=== PATIENT | female | born 1980 | race African-American/Black ===

== ENCOUNTER 2018-07-12 20:59 | Inpatient (IN) | payer OTHER ==
[~2018-07-12] VITALS: Ht 154.9 cm; Wt 60.3 kg
--- NOTE | 2018-07-12 21:52 | PHYS DOC ---
Adult General Chief Complaint Chief Complaint: SYNCOPE HPI HPI Patient is a 38 year old female who presents with to see began vomiting and was taken to [facility] where her blood pressure was 230/100. Patient states she was admitted and they put her on a drip. Patient states that she now takes amlodipine 10 mg, HCTZ, losartan. Patient states she has chronic GI problems such as nausea, vomiting, or lower abdominal pressure that has been going on for the last 2 years. Patient states she is very inconsistent with taking her amlodipine and that she did smoke some marijuana today. Patient states states the first day that she is able to keep liquids in any kind of food down. Patient states she's drinking Pedialyte and 7-Up today. Patient denies any kind of fever or abdominal pain. Review of Systems Review of Systems Constitutional: Denies fever or chills [] Eyes: Denies change in visual acuity, redness, or eye pain [] HENT: Denies nasal congestion or sore throat [] Respiratory: Denies cough or shortness of breath [] Cardiovascular: No additional information not addressed in HPI [] GI: Denies abdominal pain, nausea, vomiting, bloody stools or diarrhea [] : Denies dysuria or hematuria [] Musculoskeletal: Denies back pain or joint pain [] Integument: Denies rash or skin lesions [] Neurologic: Denies headache, focal weakness or sensory changes [] Endocrine: Denies polyuria or polydipsia [] All other systems were reviewed and found to be within normal limits, except as documented in this note. Physical Exam Physical Exam Constitutional: Well developed, well nourished, no acute distress, non-toxic appearance. [] HENT: Normocephalic, atraumatic, bilateral external ears normal, oropharynx moist, no oral exudates, nose normal. [] Eyes: PERRLA, EOMI, conjunctiva normal, no discharge. [] Neck: Normal range of motion, no tenderness, supple, no stridor. [] Cardiovascular:Heart rate regular rhythm, no murmur [] Lungs & Thorax: Bilateral breath sounds clear to auscultation [] Abdomen: Bowel sounds normal, soft, no tenderness, no masses, no pulsatile masses. [] Skin: Warm, dry, no erythema, no rash. [] Back: No tenderness, no CVA tenderness. [] Extremities: No tenderness, no cyanosis, no clubbing, ROM intact, no edema. [] Neurologic: Alert and oriented X 3, normal motor function, normal sensory function, no focal deficits noted. [] Psychologic: Affect normal, judgement normal, mood normal. [] Current Patient Data Vital Signs Vital Signs Date Time Temp Pulse Resp B/P (MAP) Pulse Ox O2 Delivery O2 Flow Rate FiO2 07/13/18 00:30 80 109/62 (78) 07/13/18 00:00 20 99 Room Air Lab Values Laboratory Tests Test 07/12/18 23:35 White Blood Count 10.7 x10^3/uL (4.0-11.0) Red Blood Count 5.65 x10^6/uL (3.50-5.40) H Hemoglobin 17.2 g/dL (12.0-15.5) H Hematocrit 49.1 % (36.0-47.0) H Mean Corpuscular Volume 87 fL (79-100) Mean Corpuscular Hemoglobin 31 pg (25-35) Mean Corpuscular Hemoglobin Concent 35 g/dL (31-37) Red Cell Distribution Width 13.8 % (11.5-14.5) Platelet Count 237 x10^3/uL (140-400) Neutrophils (%) (Auto) 73 % (31-73) Lymphocytes (%) (Auto) 18 % (24-48) L Monocytes (%) (Auto) 8 % (0-9) Eosinophils (%) (Auto) 0 % (0-3) Basophils (%) (Auto) 1 % (0-3) Neutrophils # (Auto) 7.8 x10^3uL (1.8-7.7) H Lymphocytes # (Auto) 2.0 x10^3/uL (1.0-4.8) Monocytes # (Auto) 0.8 x10^3/uL (0.0-1.1) Eosinophils # (Auto) 0.0 x10^3/uL (0.0-0.7) Basophils # (Auto) 0.1 x10^3/uL (0.0-0.2) Sodium Level 140 mmol/L (136-145) Potassium Level 3.2 mmol/L (3.5-5.1) L Chloride Level 99 mmol/L (98-107) Carbon Dioxide Level 24 mmol/L (21-32) Anion Gap 17 (6-14) H Blood Urea Nitrogen 24 mg/dL (7-20) H Creatinine 2.3 mg/dL (0.6-1.0) H Estimated GFR (Cockcroft-Gault) 28.4 Glucose Level 100 mg/dL (70-99) H Calcium Level 9.7 mg/dL (8.5-10.1) Troponin I Quantitative 0.034 ng/mL (0.000-0.055) Serum Test, Qualitative Negative (NEG) Laboratory Tests 07/12/18 23:35 Laboratory Tests 07/12/18 23:35 EKG EKG Sinus Rhythm and no STEMI Interpretation Time: 2321 Radiology/Procedures Radiology/Procedures Chest x ray, CT head Impressions: Chest xray No acute findings and read by Dr Dietrich Course & Med Decision Making Course & Med Decision Making Patient is a 38 year old female who presents with to see began vomiting and was taken to [facility] where her blood pressure was 230/100. Patient states she was admitted and they put her on a drip. Patient states that she now takes amlodipine 10 mg, HCTZ, losartan. Patient states she has chronic GI problems such as nausea, vomiting, or lower abdominal pressure that has been going on for the last 2 years. Patient states she is very inconsistent with taking her amlodipine and that she did smoke some marijuana today. Patient states states the first day that she is able to keep liquids in any kind of food down. Patient states she's drinking Pedialyte and 7-Up today. Patient denies any kind of fever or abdominal pain. Patient denies any chest pain or shortness of air. Patient states today skin having hot flashes and passed out 2-3 times. Per EMS patient's blood pressure was in the 70s. Patient's blood pressure here was 91/ 55. Coronary took her blood pressure at 18/11/39 patient's blood pressure was 151 /76, heart rate was 96, and she is 90% on room air. Patient has no abdominal tenderness and abdomen is soft without masses. Patient states she has chronic urinary symptoms with blood in her urine of which she is seen a urologist for [employer] [place], patient also has chronic GI nausea and vomiting and constipation, patient has a history of hypertension. Patient is alert and oriented and is neurologically intact. Patient denies any numbness or tingling and has no extremity edema. EKG shows no abnormalities. Patients creatinine is 2.3 but denies any Kidney history. Per [place] Syncope Rule and [place] CT head Rule patient is very low risk with a score of 0. Patient had received a CT head 2 days prior and at [facility] and it showed no acute findings. Patient is admitted to Dr Callahan. Kaur: I saw and evaluated this patient emergency room. The story that I received is that this patient had been at [facility] for vomiting elevated blood pressure patient tells me that she actually was not admitted but she was given extra blood pressure medication. She has had persistent vomiting but she has had for at least 2 months if not longer currently no abdominal pain in the emergency room. Story sounds most like hypovolemic syncope EKG showed no obvious abnormalities creatinine is 2.3 patient denies previous kidney history and I do not have an old creatinine at this time. Patient says she still feels lightheaded with standing so given that an elevated creatinine to be admitted to the service of Dr. Callahan for hydration and further treatment. Etiology of her chronic intermittent vomiting is unclear but her abdomen is nontender so I will defer imaging for now. [] Dragon Disclaimer Dragon Disclaimer This electronic medical record was generated, in whole or in part, using a voice recognition dictation system. Departure Departure Impression: Primary Impression: Syncope Disposition: ADMITTED INPATIENT Admitting Physician: Patrice Leger Condition: STABLE SUSIE MOLINA APRN Jul 12, 2018 21:52 CHI DIETRICH MD Jul 13, 2018 02:40
[2018-07-12 23:56] LABS: BASO # 0.1 x10^3/uL (0.0-0.2); BASO % 1 % (0-3); EOS % 0 % (0-3); HEMATOCRIT 49.1 % (36.0-47.0); HEMOGLOBIN 17.2 g/dL (12.0-15.5); LYMPH % 18 % (24-48); MEAN CORPUSCULAR HEMOGLOBIN 31 pg (25-35); MEAN CORPUSCULAR HGB CONC 35 g/dL (31-37); MEAN CORPUSCULAR VOLUME 87 fL (79-100); MONO # 0.8 x10^3/uL (0.0-1.1); MONO % 8 % (0-9); NEUT # 7.8 x10^3uL (1.8-7.7); NEUT % 73 % (31-73); PLATELET COUNT 237 x10^3/uL (140-400); RED BLOOD COUNT 5.65 x10^6/uL (3.50-5.40); RED CELL DISTRIBUTION WIDTH 13.8 % (11.5-14.5); WHITE BLOOD COUNT 10.7 x10^3/uL (4.0-11.0)
[2018-07-13 00:06] LABS: PREG TEST PT QUAL NEGATIVE (NEG)
[2018-07-13 00:12] LABS: CALCIUM 9.7 mg/dL (8.5-10.1); CREATININE 2.3 mg/dL (0.6-1.0); GFR 28.4
[2018-07-13 00:23] LABS: POTASSIUM 3.2 mmol/L (3.5-5.1)
[2018-07-13 02:30] VITALS: BP 102/72
[2018-07-13 02:40] LABS: BILIRUBIN,URINE MODERATE (NEG); CLARITY,URINE CLOUDY; COLOR,URINE AMBER; NITRITE,URINE NEGATIVE (NEG); PROTEIN,URINE 100 mg/dL (NEG-TRACE)
[2018-07-13 02:45] LABS: BACTERIA,URINE FEW /HPF (0-FEW); RBC,URINE 20-40 /HPF (0-2)
[2018-07-13 02:46] LABS: HYALINE CASTS, URINE MANY /HPF; SQUAMOUS EPITHELIAL CELL,UR FEW /LPF
[2018-07-13] MEDS ORDERED: LOSA1TAB25 PO (03:06)
[2018-07-13] MEDS ORDERED: AMLO10TA6 PO (03:06)
[2018-07-13] MEDS ORDERED: PROAIR HFA8.5 GM INH (03:06)
[2018-07-13] MEDS: IV NORMAL SALINE 1000ML BAG 1,000 ML IV SCH ×3 (03:51→21:30)
[2018-07-13] MEDS ORDERED: DICY10CA3 PO (04:57)
--- NOTE | 2018-07-13 06:16 | EKG ---
[facility] [address] [place] [address] Test Date: 2018-07-12 Test Time: 23:22:02 Pat Name: ELENA PEREZ Department: Room: 538 1 Gender: F Quality Improvement Manager: : 1980 Requested By: SUSIE MOLINA Order Number: [id number] Reading MD: Leroy Clayton MD Measurements Intervals [place] Rate: 74 P: 64 MN: 120 QRS: 40 QRSD: 82 T: 64 QT: 428 QTc: 476 Interpretive Statements SINUS RHYTHM Electronically Signed On 07-13-2018 12:26:40 CDT by Leroy Clayton MD
[2018-07-13 07:00] VITALS: BP 93/64
--- NOTE | 2018-07-13 08:56 | RAD ---
Chest radiograph 07/12/2018 9:53 PM INDICATION: Syncope COMPARISON: None available TECHNIQUE: Frontal and lateral views of the chest are provided. FINDINGS: The cardiomediastinal silhouette is within normal limits. There are no pleural effusions. There is no pulmonary vascular congestion. There is no pneumothorax. The lungs are clear. No significant osseous abnormality is identified. IMPRESSION: No acute cardiopulmonary process. Electronically signed by: Laura Marin MD (07/13/2018 8:53 AM) [id number]
[2018-07-13 11:00] VITALS: BP 128/83
--- NOTE | 2018-07-13 11:33 | PDOC1 ---
History and Physical Date of Admission Date of Admission DATE: 07/13/18 TIME: 11:24 Identification/Chief Complaint Chief Complaint syncope History of Present Illness History of Present Illness pt is a 38 y.o F with hx of HTN who was on losartan. The patient was admitted in [facility] and he was hyperstensive. the patient states that she was given amlodipine and losartan. the patient was discharged from there and presents here because she was syncopizing after takign those medications. SHe was also noted to be in renal failure at 2.3 of cr. the patient also was found to have polycthemia. Sx currently are diverse including mostly constipation, some nausea. Sx ar severe ongoing no radiation no alelvaiion or aggravation. Past Medical History Past Medical History htn Past Surgical History Past Surgical History hysterectomy Family History Family History bladder cysts Social History Smoke: <1 pack per day ALCOHOL: none Drugs: None Current Problem List Problem List Problems Medical Problems: (1) Syncope Status: Acute Current Medications Current Medications Current Medications Sodium Chloride 1,000 ml @ 100 mls/hr Q10H IV Last administered on 07/13/18at 03:51; Start 07/13/18 at 01:30; Stop 07/14/18 at 01:29 Active Scripts Active Reported Dicyclomine Hcl 10 Mg Capsule 1 Cap PO TID Proair Hfa Inhaler (Albuterol Sulfate) 8.5 Gm Hfa.aer.ad 1 Puff INH PRN Q6HRS PRN Losartan-Hctz 100-12.5 Mg Tab (Losartan/Hydrochlorothiazide) 1 Each Tablet 1 Tab PO DAILY Amlodipine Besylate 10 Mg Tablet 10 Mg PO DAILY Allergies Allergies: Coded Allergies: Penicillins (Verified Allergy, Intermediate, HIVES, 07/13/18) ROS Review of System 14 point ros is negative except for positive pertinants noted in hpi Physical Exam Physical Exam NAD A&ox3 mmm neck w/o nodes s1 s2 rrr no murmusr ctab soft nttp +bs no c/c/e sternght and sensation grossly intact Vitals Vitals Vital Signs Date Time Temp Pulse Resp B/P (MAP) Pulse Ox O2 Delivery O2 Flow Rate FiO2 07/13/18 08:30 Room Air 07/13/18 07:00 97.1 87 18 93/64 (74) 97.1 07/13/18 02:30 99 Labs Labs Laboratory Tests Test 07/12/18 23:35 07/13/18 01:48 White Blood Count 10.7 x10^3/uL (4.0-11.0) Red Blood Count 5.65 x10^6/uL (3.50-5.40) Hemoglobin 17.2 g/dL (12.0-15.5) Hematocrit 49.1 % (36.0-47.0) Mean Corpuscular Volume 87 fL (79-100) Mean Corpuscular Hemoglobin 31 pg (25-35) Mean Corpuscular Hemoglobin Concent 35 g/dL (31-37) Red Cell Distribution Width 13.8 % (11.5-14.5) Platelet Count 237 x10^3/uL (140-400) Neutrophils (%) (Auto) 73 % (31-73) Lymphocytes (%) (Auto) 18 % (24-48) Monocytes (%) (Auto) 8 % (0-9) Eosinophils (%) (Auto) 0 % (0-3) Basophils (%) (Auto) 1 % (0-3) Neutrophils # (Auto) 7.8 x10^3uL (1.8-7.7) Lymphocytes # (Auto) 2.0 x10^3/uL (1.0-4.8) Monocytes # (Auto) 0.8 x10^3/uL (0.0-1.1) Eosinophils # (Auto) 0.0 x10^3/uL (0.0-0.7) Basophils # (Auto) 0.1 x10^3/uL (0.0-0.2) Sodium Level 140 mmol/L (136-145) Potassium Level 3.2 mmol/L (3.5-5.1) Chloride Level 99 mmol/L (98-107) Carbon Dioxide Level 24 mmol/L (21-32) Anion Gap 17 (6-14) Blood Urea Nitrogen 24 mg/dL (7-20) Creatinine 2.3 mg/dL (0.6-1.0) Estimated GFR (Cockcroft-Gault) 28.4 Glucose Level 100 mg/dL (70-99) Calcium Level 9.7 mg/dL (8.5-10.1) Troponin I Quantitative 0.034 ng/mL (0.000-0.055) Serum Test, Qualitative Negative (NEG) Urine Collection Type Unknown Urine Color Theresa Urine Clarity Cloudy Urine pH 6.0 Urine Specific [place] 1.020 Urine Protein 100 mg/dL (NEG-TRACE) Urine Glucose (UA) Negative mg/dL (NEG) Urine Ketones (Stick) 15 mg/dL (NEG) Urine Blood Large (NEG) Urine Nitrite Negative (NEG) Urine Bilirubin Moderate (NEG) Urine Urobilinogen Dipstick 1.0 mg/dL (0.2 mg/dL) Urine Leukocyte Esterase Negative (NEG) Urine RBC 20-40 /HPF (0-2) Urine WBC 1-4 /HPF (0-4) Urine Squamous Epithelial Cells Few /LPF Urine Bacteria Few /HPF (0-FEW) Urine Hyaline Casts Many /HPF Urine Mucus Marked /LPF Laboratory Tests Test 07/12/18 23:35 07/13/18 01:48 White Blood Count 10.7 x10^3/uL (4.0-11.0) Red Blood Count 5.65 x10^6/uL (3.50-5.40) Hemoglobin 17.2 g/dL (12.0-15.5) Hematocrit 49.1 % (36.0-47.0) Mean Corpuscular Volume 87 fL (79-100) Mean Corpuscular Hemoglobin 31 pg (25-35) Mean Corpuscular Hemoglobin Concent 35 g/dL (31-37) Red Cell Distribution Width 13.8 % (11.5-14.5) Platelet Count 237 x10^3/uL (140-400) Neutrophils (%) (Auto) 73 % (31-73) Lymphocytes (%) (Auto) 18 % (24-48) Monocytes (%) (Auto) 8 % (0-9) Eosinophils (%) (Auto) 0 % (0-3) Basophils (%) (Auto) 1 % (0-3) Neutrophils # (Auto) 7.8 x10^3uL (1.8-7.7) Lymphocytes # (Auto) 2.0 x10^3/uL (1.0-4.8) Monocytes # (Auto) 0.8 x10^3/uL (0.0-1.1) Eosinophils # (Auto) 0.0 x10^3/uL (0.0-0.7) Basophils # (Auto) 0.1 x10^3/uL (0.0-0.2) Sodium Level 140 mmol/L (136-145) Potassium Level 3.2 mmol/L (3.5-5.1) Chloride Level 99 mmol/L (98-107) Carbon Dioxide Level 24 mmol/L (21-32) Anion Gap 17 (6-14) Blood Urea Nitrogen 24 mg/dL (7-20) Creatinine 2.3 mg/dL (0.6-1.0) Estimated GFR (Cockcroft-Gault) 28.4 Glucose Level 100 mg/dL (70-99) Calcium Level 9.7 mg/dL (8.5-10.1) Troponin I Quantitative 0.034 ng/mL (0.000-0.055) Serum Test, Qualitative Negative (NEG) Urine Collection Type Unknown Urine Color Theresa Urine Clarity Cloudy Urine pH 6.0 Urine Specific [place] 1.020 Urine Protein 100 mg/dL (NEG-TRACE) Urine Glucose (UA) Negative mg/dL (NEG) Urine Ketones (Stick) 15 mg/dL (NEG) Urine Blood Large (NEG) Urine Nitrite Negative (NEG) Urine Bilirubin Moderate (NEG) Urine Urobilinogen Dipstick 1.0 mg/dL (0.2 mg/dL) Urine Leukocyte Esterase Negative (NEG) Urine RBC 20-40 /HPF (0-2) Urine WBC 1-4 /HPF (0-4) Urine Squamous Epithelial Cells Few /LPF Urine Bacteria Few /HPF (0-FEW) Urine Hyaline Casts Many /HPF Urine Mucus Marked /LPF VTE Prophylaxis Ordered VTE Prophylaxis Devices: Yes VTE Pharmacological Prophylaxi: Yes Assessment/Plan Assessment/Plan #Hypotensive syncope #acute renal failure #polycthemia #severe hypotension #Tobacco abuse Plan - US Renal US abd - urine lytes - FEnA - esr, terry screen - epo level - KARINE VALDOVINOS MD Jul 13, 2018 11:32
[2018-07-13] MEDS: PSYLLIUM HUSK (SUGAR FREE) 1 PKT PACKET PO SCH ×2 (12:31→20:30)
[2018-07-13 13:17] LABS: BASO # 0.1 x10^3/uL (0.0-0.2); BASO % 1 % (0-3); EOS # 0.1 x10^3/uL (0.0-0.7); EOS % 1 % (0-3); HEMATOCRIT 49.1 % (36.0-47.0); HEMOGLOBIN 16.8 g/dL (12.0-15.5); LYMPH % 29 % (24-48); MEAN CORPUSCULAR HEMOGLOBIN 30 pg (25-35); MEAN CORPUSCULAR HGB CONC 34 g/dL (31-37); MEAN CORPUSCULAR VOLUME 88 fL (79-100); MONO # 0.8 x10^3/uL (0.0-1.1); MONO % 8 % (0-9); NEUT # 6.5 x10^3uL (1.8-7.7); NEUT % 62 % (31-73); PLATELET COUNT 235 x10^3/uL (140-400); RED BLOOD COUNT 5.62 x10^6/uL (3.50-5.40); RED CELL DISTRIBUTION WIDTH 13.8 % (11.5-14.5); WHITE BLOOD COUNT 10.5 x10^3/uL (4.0-11.0)
[2018-07-13 13:50] LABS: ALBUMIN 3.9 g/dL (3.4-5.0); DIRECT BILIRUBIN 0.3 mg/dL (0.0-0.2); TOTAL BILIRUBIN 1.2 mg/dL (0.2-1.0); TOTAL PROTEIN 7.5 g/dL (6.4-8.2)
[2018-07-13 15:00] VITALS: BP 154/94
[2018-07-13] MEDS ORDERED: ONDANSETRON ODT 4 MG TAB.RAPDIS. PO PRN (17:15)
[2018-07-13] MEDS ORDERED: HYDROcodone/APAP 5/325MG 1 TAB TABLET PO PRN (17:15)
[2018-07-13] MEDS ORDERED: ONDANSETRON PF 4 MG/2 ML VIAL. IV PRN (17:15)
[2018-07-13] MEDS ORDERED: ACETAMINOPHEN 500 MG TABLET PO PRN (17:15)
[2018-07-13] MEDS ORDERED: diphenhydrAMINE HCL 25 MG CAPSULE PO PRN (17:15)
[2018-07-13] MEDS ORDERED: ALBUTEROL SULFATE 2.5 MG/3 ML NEBU. NEB PRN (17:30)
[2018-07-13 19:00] VITALS: BP 147/103
[2018-07-13] MEDS: DICYCLOMINE HCL 10 MG CAPSULE PO SCH (20:30)
[2018-07-13 22:57] VITALS: BP 144/76
--- NOTE | 2018-07-14 00:21 | CONS ---
DATE OF CONSULTATION: 07/13/2018 REQUESTING PHYSICIAN: Dr. Patrice Callahan. REASON FOR CONSULTATION: Elevated hemoglobin. HISTORY OF PRESENT ILLNESS: The patient is a 38-year-old -Citizen Of [place] female who has a history of hypertension and was on Losartan. She was admitted to [facility] and she was noted to have severe hypertension. She was given amlodipine and losartan and discharged. She was then admitted to [facility] because she was having near syncopal episodes. She was noted to have a creatinine of 2.3 and polycythemia. I was asked to see the patient for polycythemia. She has symptoms of constipation and nausea. CBC on 07/12/2018 revealed hemoglobin of 17.2 with hematocrit of 49.1 with a WBC of 10.7, and platelet count of 237. CBC on 07/13/2018 revealed WBC of 10.5, hemoglobin 16.8, hematocrit 49.1, platelet count 235. Creatinine was 2.3. PAST MEDICAL HISTORY: Hypertension. PAST SURGICAL HISTORY: Hysterectomy. FAMILY HISTORY: Positive for bladder cyst. SOCIAL HISTORY: She has history of smoking less than 1 pack of cigarettes per day. REVIEW OF SYSTEMS: A 12-point review of system was performed. Pertinent positives are mentioned in the history of present illness. Rest of the system review is negative. PHYSICAL EXAMINATION: GENERAL APPEARANCE: The patient is a 38-year-old -Citizen Of [place] female who is in no acute cardiorespiratory distress. VITAL SIGNS: Blood pressure 109/62 and temperature afebrile. HEAD: Atraumatic, normocephalic. EYES: No icterus. NECK: Supple. CHEST: Bilaterally symmetrical. No crepitations or rhonchi heard. HEART: S1, S2 normal. ABDOMEN: Soft, nontender. CENTRAL NERVOUS SYSTEM: No focal deficits. LYMPHATICS: No lymphadenopathy. SKIN: No rashes. PSYCHOLOGIC: Mood and affect are appropriate. LABORATORY DATA: WBC 10.5, hemoglobin 16.8, hematocrit 49.1, platelet count 235, creatinine 2.3, BUN 24, calcium 9.7, total bilirubin 1.2, direct bilirubin 0.3, AST 11, ALT 10. Her ESR is 4.0. IMPRESSION AND PLAN: 1. Polycythemia. 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 I will go ahead and check erythropoietin level and JAK2 mutation. I have advised her to follow up with me upon discharge to review the above results. I have advised her to quit smoking. 2. Hematuria. The patient reports having had hematuria since 2017. She has had extensive workup and treatments by her primary physician. She has now been referred to Urology at [facility] as she has CT scans and Urology consultation appointments scheduled for next week. I have advised her to keep her appointment with the urologist for further workup. 3. Hypertension, improving. 4. Renal failure, management per primary team. LOC LUNA MD DR: LAVERNE/judi JOB#: [id number] / [id number] ELSIE
[2018-07-14 03:00] VITALS: BP 149/90
[2018-07-14 06:14] LABS: CALCIUM 8.6 mg/dL (8.5-10.1); CREATININE 1.2 mg/dL (0.6-1.0); GFR 60.2
--- NOTE | 2018-07-14 07:33 | RAD ---
Deep Doppler renal ultrasound, 07/13/2018: HISTORY: Chronic kidney disease Duplex evaluation of the main renal arteries was performed including grayscale, color-flow and spectral Doppler analysis. The peak systolic velocity in the right main renal artery is 111 cm/s and on the left is 125 cm/s. No high velocities are seen in those vessels to suggest significant renal artery stenosis. No parvus/tardus phenomena is evident. IMPRESSION: No duplex evidence of significant renal artery stenosis. Electronically signed by: Andrew Thomason MD (07/14/2018 7:29 AM) [facility]
[2018-07-14 08:00] VITALS: BP 136/98
[2018-07-14] MEDS: DICYCLOMINE HCL 10 MG CAPSULE PO SCH (09:04)
[2018-07-14] MEDS: PSYLLIUM HUSK (SUGAR FREE) 1 PKT PACKET PO SCH (09:04)
[2018-07-14] MEDS ORDERED: POTASSIUM CHLORIDE 20 MEQ TABLET.ER. PO ONE (09:15)
[2018-07-14 09:18] LABS: CALCIUM PTH 10.2 mg/dL (8.7-10.2); CREATININE PTH 1.52 mg/dL (0.57-1.00); PHOSPHORUS PTH 2.9 mg/dL (2.5-4.5); PTH INTACT 64 pg/mL (15-65)
--- NOTE | 2018-07-14 10:52 | CONS ---
DATE OF CONSULTATION: REASON FOR CONSULTATION: Renal failure. HISTORY OF PRESENT ILLNESS: This is a 38-year-old female with history of hypertension. She was treated with losartan prior to admission. She currently admitted with acceleration in level of hypertension with near syncopal episodes. She was found to have increased serum creatinine to 2.3, which with IV fluid has improved to 1.2 mg percent. She also has been noted to have hemoglobin 17.5, hematocrit 49.1 consistent with polycythemia. In this setting, Nephrology evaluation requested. Renal artery duplex reveals no evidence of renal artery stenosis. The patient now states she feels fine and "wants to go home." PAST MEDICAL HISTORY: Hypertension, hysterectomy. ALLERGIES: PENICILLIN. MEDICATIONS: Reviewed per med list. FAMILY HISTORY: Noncontributory other than bladder cyst. SOCIAL HISTORY: The patient smokes less than 1 pack of cigarettes a day, resides independently. REVIEW OF SYSTEMS: No headache, sinus problem, nasal drainage, epistaxis, change in vision or hearing. No difficulty swallowing. No fever, chills, cough, sputum production, or hemoptysis. No chest pain, shortness of breath, PND, orthopnea, dyspnea on exertion. No abdominal pain. No nausea, vomiting, diarrhea. No seizures or malignancies. PHYSICAL EXAMINATION: GENERAL: The patient is awake, conversant. HEENT: Clear. NECK: No increased JVD. No thyromegaly, mass or adenopathy. LUNGS: Clear. CARDIAC: Without S3 or rub. ABDOMEN: Soft, nontender, no bruits. EXTREMITIES: No edema. NEUROLOGIC: Nonfocal, localizing. PSYCHIATRIC: Good attention to detail, appropriate affect. LABORATORY DATA: Hemoglobin 16, hematocrit 49%. Potassium 3, CO2 24, BUN 18, creatinine 1.2, GFR 60. Urinalysis, specific gravity 1.020, large blood, 100 mg percent protein. IMPRESSION: 1. Renal failure, acute, likely prerenal and reduced intravascular volume, currently improved. Certainly may have underlying hypertensive nephrosclerosis as well. 2. Hypertension - improving control. 3. Polycythemia - no evidence of renal artery stenosis on renal artery duplex, but hypertension with polycythemia certainly is a possibility of renal artery stenosis, i.e., Luke's syndrome. 4. Hypokalemia. RECOMMENDATIONS: 1. Supplement potassium. 2. Continue blood pressure control as you are doing. 3. Home when okay with others. Discussed with her that she needs careful followup with a primary physician to avoid chronic kidney disease. HUSSEIN TATE MD DR: TASHA/judi JOB#: [id number] / [id number]
[2018-07-14 11:00] VITALS: BP 156/91
--- NOTE | 2018-07-14 11:45 | PDOC3 ---
Discharge Summary Visit Information Date of Admission: Jul 13, 2018 Date of Discharge: Jul 14, 2018 Admitting Diagnosis Comment: syncope or pre syncop likely from orthostasis or hypotension Hypotension, recently started on BP meds AK I, VMN, polycythemia mild, likely sec to dehydration Final Diagnosis Problems Medical Problems: (1) Syncope Status: Acute Brief Hospital Course Allergies Allergies Coded Allergies Type Severity Reaction Last Updated Verified Penicillins Allergy Intermediate HIVES 07/13/18 Yes Vital Signs Vital Signs Date Time Temp Pulse Resp B/P (MAP) Pulse Ox O2 Delivery O2 Flow Rate FiO2 07/14/18 08:30 Room Air 07/14/18 08:00 97.9 66 18 136/98 (111) 99 97.9 Lab Results Laboratory Tests Test 07/12/18 23:35 07/13/18 01:48 07/13/18 13:00 07/13/18 13:30 White Blood Count 10.7 x10^3/uL (4.0-11.0) 10.5 x10^3/uL (4.0-11.0) Red Blood Count 5.65 x10^6/uL (3.50-5.40) 5.62 x10^6/uL (3.50-5.40) Hemoglobin 17.2 g/dL (12.0-15.5) 16.8 g/dL (12.0-15.5) Hematocrit 49.1 % (36.0-47.0) 49.1 % (36.0-47.0) Mean Corpuscular Volume 87 fL (79-100) 88 fL (79-100) Mean Corpuscular Hemoglobin 31 pg (25-35) 30 pg (25-35) Mean Corpuscular Hemoglobin Concent 35 g/dL (31-37) 34 g/dL (31-37) Red Cell Distribution Width 13.8 % (11.5-14.5) 13.8 % (11.5-14.5) Platelet Count 237 x10^3/uL (140-400) 235 x10^3/uL (140-400) Neutrophils (%) (Auto) 73 % (31-73) 62 % (31-73) Lymphocytes (%) (Auto) 18 % (24-48) 29 % (24-48) Monocytes (%) (Auto) 8 % (0-9) 8 % (0-9) Eosinophils (%) (Auto) 0 % (0-3) 1 % (0-3) Basophils (%) (Auto) 1 % (0-3) 1 % (0-3) Neutrophils # (Auto) 7.8 x10^3uL (1.8-7.7) 6.5 x10^3uL (1.8-7.7) Lymphocytes # (Auto) 2.0 x10^3/uL (1.0-4.8) 3.0 x10^3/uL (1.0-4.8) Monocytes # (Auto) 0.8 x10^3/uL (0.0-1.1) 0.8 x10^3/uL (0.0-1.1) Eosinophils # (Auto) 0.0 x10^3/uL (0.0-0.7) 0.1 x10^3/uL (0.0-0.7) Basophils # (Auto) 0.1 x10^3/uL (0.0-0.2) 0.1 x10^3/uL (0.0-0.2) Sodium Level 140 mmol/L (136-145) Potassium Level 3.2 mmol/L (3.5-5.1) Chloride Level 99 mmol/L (98-107) Carbon Dioxide Level 24 mmol/L (21-32) Anion Gap 17 (6-14) Blood Urea Nitrogen 24 mg/dL (7-20) Creatinine 2.3 mg/dL (0.6-1.0) Estimated GFR (Cockcroft-Gault) 28.4 Glucose Level 100 mg/dL (70-99) Calcium Level 9.7 mg/dL (8.5-10.1) Troponin I Quantitative 0.034 ng/mL (0.000-0.055) Serum Test, Qualitative Negative (NEG) Urine Collection Type Unknown Urine Color [place] Urine Clarity Cloudy Urine pH 6.0 Urine Specific [place] 1.020 Urine Protein 100 mg/dL (NEG-TRACE) Urine Glucose (UA) Negative mg/dL (NEG) Urine Ketones (Stick) 15 mg/dL (NEG) Urine Blood Large (NEG) Urine Nitrite Negative (NEG) Urine Bilirubin Moderate (NEG) Urine Urobilinogen Dipstick 1.0 mg/dL (0.2 mg/dL) Urine Leukocyte Esterase Negative (NEG) Urine RBC 20-40 /HPF (0-2) Urine WBC 1-4 /HPF (0-4) Urine Squamous Epithelial Cells Few /LPF Urine Bacteria Few /HPF (0-FEW) Urine Hyaline Casts Many /HPF Urine Mucus Marked /LPF Erythrocyte Sedimentation Rate 4 (0-25) Estimated GFR (Non- 43 (>59) Total Bilirubin 1.2 mg/dL (0.2-1.0) Direct Bilirubin 0.3 mg/dL (0.0-0.2) Aspartate Amino Transf (AST/SGOT) 11 U/L (15-37) Alanine Aminotransferase (ALT/SGPT) 10 U/L (14-59) Alkaline Phosphatase 68 U/L (46-116) Total Protein 7.5 g/dL (6.4-8.2) Albumin 3.9 g/dL (3.4-5.0) EGFR 49 (>59) Thyroid Stimulating Hormone (TSH) 0.647 uIU/mL (0.358-3.74) PTH (Intact) Specimen Description Comment (.) Parathyroid Hormone (Intact) 64 pg/mL (15-65) Calcium (PTH Intact) 10.2 mg/dL (8.7-10.2) Creatinine (PTH Intact) 1.52 mg/dL (0.57-1.00) Phosphorus (PTH Intact) 2.9 mg/dL (2.5-4.5) Urine Random Creatinine 84.5 mg/dL (Not Estab.) Urine Random Sodium <60 mmol/L (Not Estab.) Test 07/14/18 04:15 Sodium Level 141 mmol/L (136-145) Potassium Level 3.0 mmol/L (3.5-5.1) Chloride Level 106 mmol/L (98-107) Carbon Dioxide Level 24 mmol/L (21-32) Anion Gap 11 (6-14) Blood Urea Nitrogen 18 mg/dL (7-20) Creatinine 1.2 mg/dL (0.6-1.0) Estimated GFR (Cockcroft-Gault) 60.2 Glucose Level 83 mg/dL (70-99) Calcium Level 8.6 mg/dL (8.5-10.1) Laboratory Tests Test 07/13/18 13:00 07/13/18 13:30 07/14/18 04:15 White Blood Count 10.5 x10^3/uL (4.0-11.0) Red Blood Count 5.62 x10^6/uL (3.50-5.40) Hemoglobin 16.8 g/dL (12.0-15.5) Hematocrit 49.1 % (36.0-47.0) Mean Corpuscular Volume 88 fL (79-100) Mean Corpuscular Hemoglobin 30 pg (25-35) Mean Corpuscular Hemoglobin Concent 34 g/dL (31-37) Red Cell Distribution Width 13.8 % (11.5-14.5) Platelet Count 235 x10^3/uL (140-400) Neutrophils (%) (Auto) 62 % (31-73) Lymphocytes (%) (Auto) 29 % (24-48) Monocytes (%) (Auto) 8 % (0-9) Eosinophils (%) (Auto) 1 % (0-3) Basophils (%) (Auto) 1 % (0-3) Neutrophils # (Auto) 6.5 x10^3uL (1.8-7.7) Lymphocytes # (Auto) 3.0 x10^3/uL (1.0-4.8) Monocytes # (Auto) 0.8 x10^3/uL (0.0-1.1) Eosinophils # (Auto) 0.1 x10^3/uL (0.0-0.7) Basophils # (Auto) 0.1 x10^3/uL (0.0-0.2) Erythrocyte Sedimentation Rate 4 (0-25) Estimated GFR (Non- 43 (>59) Total Bilirubin 1.2 mg/dL (0.2-1.0) Direct Bilirubin 0.3 mg/dL (0.0-0.2) Aspartate Amino Transf (AST/SGOT) 11 U/L (15-37) Alanine Aminotransferase (ALT/SGPT) 10 U/L (14-59) Alkaline Phosphatase 68 U/L (46-116) Total Protein 7.5 g/dL (6.4-8.2) Albumin 3.9 g/dL (3.4-5.0) EGFR 49 (>59) Thyroid Stimulating Hormone (TSH) 0.647 uIU/mL (0.358-3.74) PTH (Intact) Specimen Description Comment (.) Parathyroid Hormone (Intact) 64 pg/mL (15-65) Calcium (PTH Intact) 10.2 mg/dL (8.7-10.2) Creatinine (PTH Intact) 1.52 mg/dL (0.57-1.00) Phosphorus (PTH Intact) 2.9 mg/dL (2.5-4.5) Urine Random Creatinine 84.5 mg/dL (Not Estab.) Urine Random Sodium <60 mmol/L (Not Estab.) Sodium Level 141 mmol/L (136-145) Potassium Level 3.0 mmol/L (3.5-5.1) Chloride Level 106 mmol/L (98-107) Carbon Dioxide Level 24 mmol/L (21-32) Anion Gap 11 (6-14) Blood Urea Nitrogen 18 mg/dL (7-20) Creatinine 1.2 mg/dL (0.6-1.0) Estimated GFR (Cockcroft-Gault) 60.2 Glucose Level 83 mg/dL (70-99) Calcium Level 8.6 mg/dL (8.5-10.1) Brief Hospital Course Ms. Sanchez is a 38 old very pleasant -[place] female who was recently started on 2 blood pressure medications, came in because of syncope or presyncope. No cardiac arrhythmias on her stay here. She was hemoconcentrated slightly with a hemoglobin of 16, some AK I VMN. I do believe she was dehydrated. She was hypotensive which most likely caused her syncope. Now, after fluids that has since resolved. Consults were placed on renal regarding the AK I and heme onc regarding the hemoconcentration. 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 Otherwise stable to go home later after 24-hour urine with no change in meds. Heavy education counseling done about taking her 2 blood pressure meds with holding parameters, not to take it if systolic is 120 or less. She will follow-up with her PCP about this. Advise smoking cessation No meds from me Consults performed heme onc, renal, procedures performed 24 hour urine Discharge Information Condition at Discharge: Improved, Stable Follow Up: Weeks (pcpc 4 weeks re BP) Disposition/Orders: D/C to Home Scheduled Amlodipine Besylate (Amlodipine Besylate) 10 Mg Tablet, 10 MG PO DAILY, ( Reported) Entered as Reported by: CASIMIRO NAM on 07/13/18305 Last Action: HELD on 07/13/181714 by KAYA PAUL Dicyclomine Hcl (Dicyclomine Hcl) 10 Mg Capsule, 1 CAP PO TID, #90 Ref 11 ( Reported) Entered as Reported by: CASIMIRO NAM on 07/13/18456 Last Action: Continued on 07/13/181714 by KAYA PAUL Losartan/Hydrochlorothiazide (Losartan-Hctz 100-12.5 Mg Tab) 1 Each Tablet, 1 TAB PO DAILY, #30 Ref 5 (Reported) Entered as Reported by: CASIMIRO NAM on 07/13/18305 Last Action: HELD on 07/13/181714 by KAYA PAUL Scheduled PRN Albuterol Sulfate (Proair Hfa Inhaler) 8.5 Gm Hfa.aer.ad, 1 PUFF INH PRN Q6HRS PRN for SHORTNESS OF BREATH, Ref 0 (Reported) Entered as Reported by: CASIMIRO NAM on 07/13/18305 Last Action: Converted on 07/13/181714 by KAYA MICHELLE MD Jul 14, 2018 11:45
[2018-07-14] MEDS ORDERED: SODIUM PHOSPHATES 19/7GM 133 ML ENEMA. PR ONE (12:15)
[2018-07-14] MEDS ORDERED: oxyCODONE/APAP 5/325 1 TAB TABLET PO PRN (12:15)
[2018-07-15 13:13] LABS: CREATININE, UR 93.9 mg/dL (Not Estab.)
[2018-07-16 15:23] LABS: ANA INTERP Negative (.)
[2018-07-17 09:29] LABS: DOPAMINE <30 pg/mL (0-48); EPINEPHRINE 603 pg/mL (0-874); NOREPINEPHRINE 56 pg/mL (0-62)
== END 2018-07-14 14:06 | disposition home or self-care (01) | DRG 314 ==
LOC: ER 20:59 → 5 NORTH 07-13 00:45
PROVIDERS: ADMIT Family Medicine; ATTEND Family Medicine
DX: I95.9 Hypotension, unspecified (principal); N17.0 Acute kidney failure with tubular necrosis; E86.0 Dehydration; E87.6 Hypokalemia; D75.1 Secondary polycythemia; F17.210 Nicotine dependence, cigarettes, uncomplicated; I10 Essential (primary) hypertension; K59.00 Constipation, unspecified; Z90.710 Acquired absence of both cervix and uterus; Z88.0 Allergy status to penicillin
CPT/HCPCS: 36415; 71046; 76770; 80048; 80076; 81001; 82384; 82533; 82570; 82668; 83970; 84300; 84443; 84484; 84703; 85025; 85651; 86038; 93005; 93975; J7030; 99285-25

== ENCOUNTER 2018-08-07 22:41 | Emergency (ER) | payer OTHER ==
[~2018-08-07] VITALS: Ht 154.9 cm; Wt 64.0 kg
[~2018-08-07 22:41] MED LIST: AMLO10TA6 PO; DICY10CA3 PO; LOSA1TAB25 PO; PROAIR HFA8.5 GM INH
[2018-08-07] MEDS ORDERED: cloNIDine HCL 0.1 MG TABLET PO ONE (23:15)
[2018-08-07] MEDS ORDERED: HYDROcodone/APAP 5/325MG 1 TAB TABLET PO ONE (23:15)
[2018-08-08 00:31] LABS: BILIRUBIN,URINE NEGATIVE (NEG); CLARITY,URINE CLEAR; COLOR,URINE YELLOW; NITRITE,URINE NEGATIVE (NEG); PROTEIN,URINE NEGATIVE (NEG-TRACE); UROBILINOGEN,URINE 0.2 mg/dL (0.2 mg/dL)
[2018-08-08 00:39] LABS: BACTERIA,URINE FEW /HPF (0-FEW); SQUAMOUS EPITHELIAL CELL,UR FEW /LPF
[2018-08-08 00:50] VITALS: BP 127/77
--- NOTE | 2018-08-08 00:55 | PHYS DOC ---
Past Medical History Past Medical History: Asthma, Hypertension Past Surgical History: , Hysterectomy Additional Past Surgical Histo: FIBROID TUMERS REMOVAL, DNC Alcohol Use: Rarely Drug Use: Marijuana Adult General Chief Complaint Chief Complaint: HYPERTENSION HPI HPI Patient is a 38-year-old female who presents with complaint of elevated blood pressure at home. Patient indicates that she recently had some changes to her medications managing her blood pressure. She also indicates that she recently had a procedure on her bladder and had her Vargas catheter removed just yesterday. She states that she does have moderate pain in her lower abdomen in the suprapubic region that she rates about a 6 out of 10. She denies any nausea or vomiting. She also denies any headache, chest pain or shortness of breath. Review of Systems Review of Systems Constitutional: Denies fever or chills [] Eyes: Denies change in visual acuity, redness, or eye pain [] Respiratory: Denies cough or shortness of breath [] Cardiovascular: Denies chest pain[] GI: [place] of lower abdominal pain[] : Reports hematuria[] Musculoskeletal: Denies back pain or joint pain [] Neurologic: Denies headache, focal weakness or sensory changes [] All other systems were reviewed and found to be within normal limits, except as documented in this note. Current Medications Current Medications Current Medications Medications (Trade) Dose Ordered Sig/Jeremias Start Time Stop Time Status Last Admin Dose Admin Acetaminophen/ Hydrocodone Bitart (Lortab 5/325) 1 tab 1X ONCE 08/07/18 23:15 08/07/18 23:16 DC 08/07/18 23:07 1 TAB Clonidine HCl (Catapres) 0.1 mg 1X ONCE 08/07/18 23:15 08/07/18 23:16 DC 08/07/18 23:07 0.1 MG Allergies Allergies Allergies Coded Allergies Type Severity Reaction Last Updated Verified Penicillins Allergy Intermediate HIVES 07/13/18 Yes Physical Exam Physical Exam Constitutional: Well developed, well nourished, no acute distress, non-toxic appearance. [] HENT: Normocephalic, atraumatic, bilateral external ears normal, oropharynx moist, no oral exudates, nose normal. [] Eyes: PERRLA, EOMI, conjunctiva normal, no discharge. [] Neck: Normal range of motion, no tenderness, supple, no stridor. [] Cardiovascular:Heart rate regular rhythm, no murmur [] Lungs & Thorax: Bilateral breath sounds clear to auscultation [] Abdomen: Bowel sounds normal, soft, with mild suprapubic tenderness. [] Skin: Warm, dry, no erythema, no rash. [] Extremities: No tenderness, no cyanosis, no clubbing, ROM intact, no edema. [] Neurologic: Alert and oriented X 3, normal motor function, normal sensory function, no focal deficits noted. [] Current Patient Data Vital Signs Vital Signs Date Time Temp Pulse Resp B/P (MAP) Pulse Ox O2 Delivery O2 Flow Rate FiO2 08/07/18 23:07 69 193/103 08/07/18 22:45 98.2 16 100 Room Air 98.2 Lab Values Laboratory Tests Test 08/08/18 00:20 Urine Collection Type Unknown Urine Color Yellow Urine Clarity Clear Urine pH 7.0 Urine Specific [place] <=1.005 Urine Protein Negative mg/dL (NEG-TRACE) Urine Glucose (UA) Negative mg/dL (NEG) Urine Ketones (Stick) Negative mg/dL (NEG) Urine Blood Large (NEG) Urine Nitrite Negative (NEG) Urine Bilirubin Negative (NEG) Urine Urobilinogen Dipstick 0.2 mg/dL (0.2 mg/dL) Urine Leukocyte Esterase Trace (NEG) Urine RBC 11-20 /HPF (0-2) Urine WBC 1-4 /HPF (0-4) Urine Squamous Epithelial Cells Few /LPF Urine Bacteria Few /HPF (0-FEW) EKG EKG [] Radiology/Procedures Radiology/Procedures [] Course & Med Decision Making Course & Med Decision Making Pertinent Labs and Imaging studies reviewed. (See chart for details) [] Dragon Disclaimer Dragon Disclaimer This electronic medical record was generated, in whole or in part, using a voice recognition dictation system. Departure Departure Impression: Primary Impression: Hypertension Disposition: 01 HOME, SELF-CARE Condition: STABLE Referrals: JESS PETE MD (PCP) Patient Instructions: Hypertension Problem Qualifiers Primary Impression: Hypertension Hypertension type: unspecified Qualified Codes: I10 - Essential (primary) hypertension WESLEY GRAY Jr. DO Aug 08, 2018 00:55
== END 2018-08-08 01:15 | disposition home or self-care (01) ==
LOC: ER 22:41
DX: I10 Essential (primary) hypertension (principal); R10.30 Lower abdominal pain, unspecified; J45.909 Unspecified asthma, uncomplicated; Z88.0 Allergy status to penicillin
CPT/HCPCS: 81001; 87086; 99284